=== PATIENT | female | born 1985 | race Asian ===

== ENCOUNTER → 2021-09-27 10:57 | Outpatient (CLI) | payer OTHER, SELFPAY ==
[2021-09-29 20:11] LABS: AFP Value 35.3 ng/mL (.); Gest Age on Col Date 15.9 weeks (.); Insulin Dep Diabetes No (.); OSBR Risk 1IN 9540 (.); Results Report (.); Test Results *Screen Negative* (.)
== END ==
PROVIDERS: Referring Provider Obstetrics & Gynecology; Visit Provider Obstetrics & Gynecology
DX: Z34.82 Encounter for supervision of other normal pregnancy, second trimester (principal); Z3A.15 15 weeks gestation of pregnancy
CPT/HCPCS: 36415; 82105

== ENCOUNTER → 2021-11-02 10:45 | Outpatient (CLI) | payer OTHER, SELFPAY ==
--- NOTE | 2021-11-02 10:47 | DI.US.S_ITS ---
PROCEDURE: US OB >= 14 WEEKS FETUS INDICATIONS: ANATOMY SCAN OUTSIDE/PRIOR DATING DATA: Last menstrual period (LMP): 06/01/2021 LMP-based estimated date of delivery (SERGO): 03/08/2022. First dating scan (date and location): 11/02/2021. Estimated date of delivery (SERGO) from first dating scan: 03/19/2022. The calculations are made using the ultrasound SERGO of 03/19/2022. TECHNIQUE: Real-time scanning was performed of the fetus, with image documentation and biometric measurements. COMPARISON: None. FINDINGS: General: A single living intrauterine gestation is present. Presentation: Vertex. Placenta: Placental position is anterior , without previa. Amniotic fluid index: 13.7 cm, normal range is 5-24 cm. Single deepest vertical pocket is 3.6 cm. heart rate: 139 beats per minute. Maternal cervical canal: 4.4 cm long. Normal lower limit is 2.5 cm. biometrics: Biparietal diameter: 20 weeks 3 days Head circumference: 20 weeks 3 days Abdominal circumference: 20 weeks Femur length: 20 weeks 5 days Clinically estimated gestational age: 22 weeks Composite gestational age from present scan: 20 weeks Estimated weight and percentile: 347 g; 2nd percentile Anatomic survey: Neuro: Suboptimally visualized. Nuchal skin fold: Normal at less than 6 mm between 14-21 weeks gestational age. Face: Suboptimally visualized. Spine: No evidence for spina bifida. Heart: Suboptimally visualized. Diaphragm: Diaphragm is intact. Stomach: Left-sided stomach is present. Kidneys: No hydronephrosis. Normal is less than 5 mm in 2nd trimester, less than 7 mm in 3rd trimester. Cord: 3-vessel cord has orthotopic insertion. Bladder: Normal in size. Extremities: Feet suboptimally visualized. IMPRESSION: 1. Single living IUP redemonstrated and interval growth is less than expected with estimated weight at the 2nd percentile. Recommend short-term follow-up ultrasound to exclude early developing intrauterine growth restriction. 2. Limited anatomic survey which can be reassessed on follow-up examination. We strive to produce accurate, complete, and clear reports of imaging services. To assist us in improving patient care, this report was composed using standard report templates and voice recognition software. Therefore, it may contain abnormal punctuation, insertions and/or omissions. Occasional wrong-word or sound-alike substitutions may occur. Though we review the report and make efforts to correct it, we do recommend that the report be read carefully in proper context to recognize any text inaccuracies. Dictated by: Krishna COLBY Interpreted: Camille Warren MD on 11/02/2021 at 16:40 Transcribed by: LANDRY on 11/02/2021 at 16:42 Approved by: Camille Warren M.D. on 11/02/2021 at 17:31
== END ==
PROVIDERS: Referring Provider Obstetrics & Gynecology; Visit Provider Obstetrics & Gynecology
DX: Z34.82 Encounter for supervision of other normal pregnancy, second trimester (principal)
CPT/HCPCS: 76811

== ENCOUNTER → 2021-12-25 06:39 | Outpatient (CLI) | payer OTHER, SELFPAY ==
--- NOTE | 2021-12-25 06:40 | DI.US.S_ITS ---
PROCEDURE: US OB LIMITED INDICATIONS: RE-EVALUATE ANATOMY; EFW OUTSIDE/PRIOR DATING DATA: Last menstrual period (LMP): 06/01/2021 LMP-based estimated date of delivery (SERGO): 03/08/2022 First dating scan (date and location): 11/07/2021 Estimated date of delivery (SERGO) from first dating scan: 03/19/2022 TECHNIQUE: Real-time scanning was performed of the fetus, with image documentation and biometric measurements. Endovaginal scanning: Not indicated [facility] >= 14 WEEKS [facility]US, 11/02/2021, 11:09. FINDINGS: General: A single living intrauterine gestation is present. Presentation: Vertex Placenta: Placental position is anterior, without previa. Amniotic fluid index: 16.9 cm, normal range is 5-24 cm. Single deepest vertical pocket is 6.2 cm. heart rate: 139 beats per minute. Maternal cervical canal: 3.8 cm long. Normal lower limit is 2.5 cm. biometrics: Biparietal diameter: 7.4 cm, 29 weeks, 3 days. Head circumference: 27.4 cm, 29 weeks, 6 days. Abdominal circumference: 23.9 cm, 28 weeks, 2 days. Femur length: 5.5 cm, 29 weeks, 0 day. Clinically estimated gestational age: 28 weeks, 0 day. Composite gestational age from present scan: 29 weeks, 1 day. Estimated weight and percentile: 1274 g, 66 %. Facial profile, four-chamber heart and outflow tracts and right lower extremity are visualized and are within normal limits. Neural structures are within normal limits. IMPRESSION: 1. Single live intrauterine gestation with fetus in vertex presentation. heart rate is 139 beats per minute. Normal amount of amniotic fluid. Normal growth. Estimated weight is at 66%. 2. facial profile, neural structures, cardiac structures and outflow tracts and right lower extremity are visualized on the current study and are within normal limits. We strive to produce accurate, complete, and clear reports of imaging services. To assist us in improving patient care, this report was composed using standard report templates and voice recognition software. Therefore, it may contain abnormal punctuation, insertions and/or omissions. Occasional wrong-word or sound-alike substitutions may occur. Though we review the report and make efforts to correct it, we do recommend that the report be read carefully in proper context to recognize any text inaccuracies. Dictated by: Ray Ratliff M.D. on 12/25/2021 at 10:56 Approved by: Ray Ratliff M.D. on 12/25/2021 at 10:59
[2021-12-25 09:23] LABS: Hematocrit 33.5 % (36-46); Hemoglobin 11.4 g/dL (12.0-16.0)
[2021-12-25 09:44] LABS: GTT (PREG) 1 Hour PP 50gm Dose 131 mg/dL (76-139)
== END ==
PROVIDERS: Referring Provider Obstetrics & Gynecology; Visit Provider Obstetrics & Gynecology
DX: Z36.2 Encounter for other antenatal screening follow-up (principal); Z3A.29 29 weeks gestation of pregnancy
CPT/HCPCS: 36415; 76815; 82950; 85014; 85018

== ENCOUNTER 2022-02-01 09:31 | Outpatient (CLI) | payer OTHER, SELFPAY ==
--- NOTE | 2022-02-01 10:10 | P.TNLD_ITS ---
Visit Information Visit Information Date of evaluation: 02/01/22 Primary OB Provider: Chalino Rubio Reason for Evaluation: Yes non-stress test Comments/Additional reasons for admission: Decreased FM, mother currently has URI symptoms Vital Signs Vital Signs: BP: 95/49 P: 94 T: 36.5C PFSH Surgical History (Updated 09/27/21 @ 10:53 by Chalino Rubio MD) Hx of SALUD Previous section Social History marital status: number of children: 1 household members: spouse and children (Son currently visiting family in [place]) lives independently: Yes housing: condominium ([facility]) pets and animals: No education level: college (some college) 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, on desk job during ) special sina needs: No travel history: over 6 months ago seatbelt use: always water heater temp set < 120 deg: Yes working smoke detector in home: Yes fire extinguisher in home: Yes carbon monox detector in home: Yes firearms in home: No do you feel safe at home: Yes Smoking Status: Never smoker second hand exposure: Yes ( smokes outside) alcohol intake: never substance use type: does not use during the past year weight has: remained stable well-balanced diet: daily or most days daily servings fruits/ve-4 caffeine: Yes Type(s) of exercise: walking frequency: 3-4 times per week Evaluation Evaluation Baseline heart rate: 145 Variability: Moderate (11-25) monitor accelerations: Present Monitor Decelerations: Absent Category of Tracing: Reactive Diagnosis, Plan/Disposition Final Diagnosis (1) Previous delivery, antepartum: Status: Acute (2) : Status: Acute (3) Decreased movement affecting management of in third trimester: Status: Acute Problem details: Normal FM noted and reactive NST Plan/Disposition Plan: Continue symptomatic treatment measures for URI. Follow-up as scheduled or PRN OB Disposition: home
== END 2022-02-01 10:54 | disposition home or self-care (01) ==
LOC: LABOR 10:02 → OB 02-07 09:05
PROVIDERS: Referring Provider Obstetrics & Gynecology; Visit Provider Obstetrics & Gynecology
DX: O36.8130 Decreased fetal movements, third trimester, not applicable or unspecified (principal); O09.523 Supervision of elderly multigravida, third trimester; O47.03 False labor before 37 completed weeks of gestation, third trimester; Z3A.33 33 weeks gestation of pregnancy
CPT/HCPCS: 59025; G0378; G0379

== ENCOUNTER → 2022-02-27 11:40 | Outpatient (CLI) | payer OTHER, SELFPAY ==
[2022-02-28 10:16] LABS: Strep Grp B PCR NEG for Grp B Strep
== END ==
PROVIDERS: Visit Provider Obstetrics & Gynecology
DX: Z34.83 Encounter for supervision of other normal pregnancy, third trimester (principal); Z3A.37 37 weeks gestation of pregnancy
CPT/HCPCS: 87653

== ENCOUNTER 2022-03-15 11:25 | Inpatient (IN) | payer OTHER, SELFPAY ==
--- NOTE | 2022-03-15 08:54 | P.HPOB_ITS ---
OB HPI Date/Time Date of admission: 03/15/22 Date Patient Seen: 03/15/22 Time Patient Seen: 12:40 History of Present Condition Chief complaint: Section : 2 Para: 1 Estimated Date of Delivery: 03/18/22 Estimated Gestational Age (weeks): 39+4 Narrative: Marcin Mg is a 36 year old , SERGO 03/18/2022 admitted now at 39+ 4 weeks gestational age for repeat section. Patient's course has been largely uneventful with solid dating and appropriate milestones throughout. Her 1st section was complicated by significant infection but otherwise her recovery was uncomplicated. GBS is negative. Laboratory studies showed gestational platelet decreased 111k patient has no symptoms of bleeding or easy bruising. Indications Operative indications ( section): previous uterine surgery History of Present care: good care Dating criteria: LMP confirmed by 1st trimester US Ultrasounds: normal 1st trimester US and normal mid trimester US Obstetrical complications: none Medical complications: other (Thrombocytopenia) Preadmission Labs Blood type: B (+) positive -: Antibody screen: negative, GBS status: negative, HBsAG: negative, HIV: negative and RPR/VDLR: negative -: Chlamydia screen: not detected and Gonorrhea screen: not detected -: Rubella: immune and Varicella: immune HCT: 35.8 HCAB: negative PAP: Normal Quad screen: Normal 1 hr GTT: 131 Prior (ies) History: CS x 1 Evaluation Evaluation Baseline heart rate: 150 Variability: Moderate (11-25) monitor accelerations: Present Monitor Decelerations: Absent Contraction Frequency (minutes): 2 Uterine Contraction Intensity: Mild Category of Tracing: Reactive Status: Category l [facility] Surgical History (Updated 09/27/21 @ 10:53 by Chalino Rubio MD) Hx of LASIK Previous section Social History marital status: number of children: 1 household members: spouse and children (Son currently visiting family in [place]) lives independently: Yes housing: condominium (base [facility]) pets and animals: No education level: college (some college) 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, on desk job during ) special sina needs: No travel history: over 6 months ago seatbelt use: always water heater temp set < 120 deg: Yes working smoke detector in home: Yes fire extinguisher in home: Yes carbon monox detector in home: Yes firearms in home: No do you feel safe at home: Yes Smoking Status: Never smoker second hand exposure: Yes ( smokes outside) alcohol intake: never substance use type: does not use during the past year weight has: remained stable well-balanced diet: daily or most days daily servings fruits/ve-4 caffeine: Yes Type(s) of exercise: walking frequency: 3-4 times per week Meds Home Medications and Allergies Home Medications Medication Instructions Recorded Confirmed Type prenat.vits,jody,gbw-[id number] 1 tab PO DAILY 09/20/21 03/13/22 History fluconazole 150 mg tablet 150 mg PO Q3D 2 doses #2 tabs 10/25/21 03/13/22 Rx (Diflucan) Allergies Allergy/AdvReac Type Severity Reaction Status Date / Time No Known Allergies Allergy Verified 03/13/22 11:39 OB Exam Vital signs Blood Pressure: 107/58 Pulse Rate: 75 Temperature: 98.2 F HENMT Head: normal to inspection, normocephalic and atraumatic Eyes General: appearance normal, both eyes and all related structures Resp Effort & Inspection: normal respiratory effort and able to speak in complete sentences Auscultation: clear to auscultation bilaterally Cardio Rate: regular rate Rhythm: regular rhythm Heart Sounds: S1 normal, S2 normal and no murmurs Extremities Lower extremity: Yes normal to inspection GI Inspection: normal to inspection Palpation: Yes soft and Yes no hepatosplenomegaly Uterus Location (Fundal Height): 38 Presentation: vertex Estimated Weight (lbs): 8 Objective Labs 03/15/22 12:25 Assessment and Plan Assessment and Plan Assessment and Plan narrative: ASSESSMENT 1. Intrauterine , 39+ weeks gestational age 2. Prior section x1 3. Thrombocytopenia PLAN 1. Admit for repeat section 2. See admission orders
[2022-03-15 12:39] LABS: Add Manual Diff / Slide Review NO; Basophils Absolute Auto 0 /uL (0-100); Basophils Percent Auto 0.4 % (0-2); Eosinophils Absolute Auto 100 /uL (0-450); Eosinophils Percent Auto 0.8 % (2-4); Hematocrit 35.8 % (36-46); Lymphocytes Absolute Auto 900 /uL (1100-4500); Lymphocytes Percent Auto 13.1 % (25-40); Mean Corpuscular HGB Conc 33.6 % (30-36); Mean Corpuscular Hemoglobin 28.8 PG (26-34); Mean Corpuscular Volume 85.8 fL (80-100); Monocytes Absolute Auto 500 /uL (0-900); Monocytes Percent Auto 7.7 % (3-14); Neutrophils Absolute Auto 5100 /uL (1500-7000); Platelet Count 111 X10^3/uL (150-400); Red Blood Cell Count 4.17 X10^6/uL (4.0-5.2); Red Cell Distribution Width 13.9 % (11.6-14.8); White Blood Cell Count 6.6 X10^3/uL (4.5-11.0)
[2022-03-15] MEDS: LACTATED RINGERS 1,000 ML 999 ML IV (12:40)
[2022-03-15 13:01] VITALS: BP 107/58
[2022-03-15 13:31] VITALS: BP 107/58; PULSE 75; TEMP 36.8
[2022-03-15] MEDS: LACTATED RINGERS 1,000 ML 42 ML IV ×2 (13:40→15:03)
[2022-03-15] MEDS: CITRIC ACID/SODIUM CITRATE 15 ML SOLUTION 30 ML PO (13:42)
[2022-03-15] MEDS: CEFAZOLIN 2 GM/100 ML PREMIX 100 ML IV (14:05)
--- NOTE | 2022-03-15 14:27 | SUR.OPER ---
Supine on Padded OR bed, head on pillow, safety belt at thigh, arms secured on padded arm boards at <90 degrees abduction. Bump under right buttock. Legs uncrossed with pillow under knees, gel pad to heels, tape over blanket to lower legs. Gel pad placed between right posterior thigh and urinary catheter tubing.
--- NOTE | 2022-03-15 14:47 | SUR.OPER ---
Viable baby girl delivered at 1439. Placenta delivered. Placenta and cord blood tubes X2 given to L&D RN.
[2022-03-15 15:43] VITALS: BP 98/62; PULSE 65; RESP 21; TEMP 36.4; O2SAT 100
[2022-03-15 15:49] VITALS: BP 98/52; PULSE 68; RESP 18; TEMP 36.4; O2SAT 100
--- NOTE | 2022-03-15 15:49 | P.OP_ITS ---
Operative Date/Time/Diagnoses Date of procedure: 03/15/22 Time of procedure: 14:15 Pre-op diagnosis: Intrauterine gestation, norris, 39+4 weeks EGA Previous section x 1 Post-op diagnosis: same Procedure & Clinicians Procedure: Repeat section, low transverse cervical Same procedure as scheduled: Yes Indications: Marcin Mg is a 36 year old , SERGO 03/18/2022 admitted now at 39+ 4 weeks gestational age for repeat section.? Patient's course has been largely uneventful with solid dating and appropriate milestones throughout.? Her 1st section was complicated by significant infection but otherwise her recovery was uncomplicated.? GBS is negative.? Laboratory studies showed gestational platelet decreased 111k patient has no symptoms of bleeding or easy bruising. Surgeon: Chalino Rubio Trimmer And Borer Machine Operator: Kim Rowe Reason for Trimmer And Borer Machine Operator: Trimmer And Borer Machine Operator required for the safe, effective, and timely completion of this surgery. Anesthesia Type: Spinal Operative Notes Findings: Viable female infant BW 3675 gms (8 lbs. 1.6 oz.), Apgars 8/9, delivered from the vertex presentation. Normal gravid anatomy. Adhesions between anterior fundus to anterior abdominal wall lysed. Closure Type: primary Specimen(s): cord blood Intraoperative meds administered: Ketorolac and Pitocin Applied: Catheter Estimated Blood Loss (mL): 800 Blood products transfused: none Procedure in detail: With her informed written consent, the patient was taken to the operating room and placed in the supine position for a repeat section procedure, for the indication(s) above. The abdomen was prepped and draped in the usual manner for section and a pre-surgical timeout was taken per [facility] OR protocol. Once effective anesthesia was confirmed, a 15 cm transverse Pfannenstiel incision was made in the skin excising the old scar and taken down through the subcutaneous tissues to the deep fascia. The deep fascia was incised transversely, the rectus abdominal eyes bluntly and sharply, and the peritoneal cavity entered without difficulty. The lower uterine segment was visualized and the position/presentation palpated. A transverse incision at or above the vesicouterine reflection was made with Metzenbaum scissors and transverse hysterotomy performed near the midline. Amniotomy revealed clear fluid. The incision was extended bilaterally with digital traction and the was delivered with vacuum extraction from the vertex presentation. The was vigorous and cord clamping delayed for 60 seconds. The placenta was delivered intact using gentle cord traction and fundal massage. The uterine cavity was then cleared of any clot/debris first with a sloppy wet lap tape followed by a dry lap tape. The uterus was then exteriorized following lysis of adhesions between the anterior fundus and the anterior abdominal wall. Ring forceps were then applied to the angles and the midline of the incised LETICIA. A primary closure of the uterus was then accomplished with #1 CCGS in a running interlocking stitch followed by a 2nd layer of #1 CCGS in a running interlocking imbricating stitch. [] Three additional figure of eight sutures was/were required to achieve complete hemostasis. Once pelvic hemostasis was assured, the bladder flap and anterior peritoneum were closed with a running 2-0 Vicryl suture and the fascia closed with #1 Vicryl in a running stitch initiated at both angles and tying separately near the midline. The subcutaneous tissues were reapproximated with 2-0 plain catgut suture using inverted interrupted stitches. The skin edges were then brought together with 4-0 Monocryl in a subcuticular closure and the incision was reinforced with 1 Steri-Strips. An appropriate compression dressing was applied and the patient transferred to PACU for recovery and subsequent transfer to the Center for recuperation. Complications: none Post-operative Condition: stable Disposition: PACU Aftercare: routine postop
[2022-03-15 15:50] VITALS: BP 92/54; PULSE 63; RESP 16; TEMP 36.4; O2SAT 99
[2022-03-15 16:05] VITALS: BP 94/59; PULSE 62; RESP 18; O2SAT 98
[2022-03-15] MEDS: TRANEXAMIC ACID 1,000 MG in SODIUM CHLORIDE 0.9% 100 ML 200 MG IV ×2 (16:10→18:23)
[2022-03-15] MEDS: ONDANSETRON 4 MG/2 ML INJ IV (17:14)
[2022-03-15] MEDS: ACETAMINOPHEN 325 MG TABLET 650 MG PO (17:59)
[2022-03-15] MEDS: METOCLOPRAMIDE 10 MG/2 ML INJ IV (18:25)
[2022-03-15] MEDS: KETOROLAC 30 MG/ML VIAL IV (21:27)
[2022-03-16] MEDS: KETOROLAC 30 MG/ML VIAL IV ×2 (04:21→10:00)
[2022-03-16 10:00] VITALS: TEMP 36.8
[2022-03-16] MEDS: DOCUSATE 100 MG CAPSULE PO (10:01)
[2022-03-16] MEDS: PRENATAL VIT,CALC/IRON/FOLIC 1 TABLET 1 TAB PO (10:01)
[2022-03-16] MEDS: OXYCODONE/ACETAMINOPHEN 5/325 TABLET 1 TAB PO (11:20)
--- NOTE | 2022-03-16 11:49 | P.PNOB_ITS ---
Subjective - OB Subjective Patient comments: no complaints, incisional pain, tolerating diet and flatus present baby status: doing well [place] feeding status: exclusively breast feeding Narrative: Doing well overnight with reasonable pain control. No nausea and vomiting. Patient is afebrile and normotensive. Date Patient Seen: 03/16/22 Time Patient Seen: 11:50 Exam Vital Signs (past 8 hours): - 03/16/22 10:00 Temperature 98.2 F Oxygen Delivery Method Room Air Const General: cooperative and comfortable Nutritional Appearance: average body habitus Orientation: alert and oriented x3 HENMT Head: normal to inspection, atraumatic and abrasion Ears: hearing grossly normal bilaterally Face and sinus: face symmetric Eyes General: appearance normal, both eyes and all related structures Conjunctivae: conjunctivae normal Sclera: sclerae normal EOM: EOM intact bilaterally Neck Neck: normal visual inspection Resp Effort & Inspection: normal respiratory effort and able to speak in complete sentences Auscultation: clear to auscultation bilaterally Cardio Rate: regular rate Rhythm: regular rhythm Heart Sounds: S1 normal, S2 normal and no murmurs GI Inspection: normal to inspection and incision (Surgical dressing clean and dry) Palpation: soft, no hepatosplenomegaly, mass (Firm, mildly tender fundus, U -4.) and tender (Mild, diffuse postsurgical tenderness) External Female Exam: other (No significant bleeding noted) Extrem General: no calf tenderness Psych Appearance: grossly normal Mental Status: mental status grossly normal Speech and Movement: speech and movement normal Mood: congruent mood Affect: normal affect Attitude: cooperative Thought Process: normal Thought Content: normal Judgment: judgment good Objective Labs 03/15/22 12:25 Labs: Laboratory Results - last 24 hr 03/15/22 03/15/22 12:25 12:25 WBC 6.6 RBC 4.17 Hgb 12.0 Hct 35.8 L MCV 85.8 MCH 28.8 MCHC 33.6 RDW 13.9 Plt Count 111 L Neut % (Auto) 78.0 H Lymph % (Auto) 13.1 L [place] % (Auto) 7.7 Eos % (Auto) 0.8 L Baso % (Auto) 0.4 Neut # (Auto) 5100 Lymph # (Auto) 900 L [place] # (Auto) 500 Eos # (Auto) 100 Baso # (Auto) 0 Blood Type B Positive Antibody Screen Negative Assessment & Plan Plan day: 1 plan OB: routine postop care Comments: Possible discharge tomorrow if patient comfortable with discharge given that she had atraumatic for complicated by severe postoperative infection. Patient is clearly traumatized by the experience and anxious about recurrence of the infection Time Spent With Patient Time: Total time spent is greater than 50% in coordination of care (as documented) at patient's floor/unit and/or counseling patient: Time with patient: less than 15 minutes
[2022-03-16] MEDS: OXYCODONE IR 5 MG TABLET PO (13:10)
[2022-03-16] MEDS: ACETAMINOPHEN 325 MG TABLET 650 MG PO ×2 (16:50→23:22)
[2022-03-16] MEDS: IBUPROFEN 600 MG TABLET PO ×2 (16:51→23:21)
[2022-03-16] MEDS: OXYCODONE IR 5 MG TABLET 10 MG PO ×2 (16:52→20:51)
[2022-03-16] MEDS: MORPHINE 4 MG/ML INJ IV (20:19)
[2022-03-17] MEDS: OXYCODONE IR 5 MG TABLET 10 MG PO ×3 (01:09→09:22)
[2022-03-17] MEDS: ACETAMINOPHEN 325 MG TABLET 650 MG PO ×3 (05:03→21:37)
[2022-03-17] MEDS: IBUPROFEN 600 MG TABLET PO ×3 (05:04→18:55)
[2022-03-17 07:39] VITALS: BP 95/63; PULSE 69; RESP 16; TEMP 36.9
[2022-03-17 09:22] VITALS: TEMP 36.5
[2022-03-17] MEDS: PRENATAL VIT,CALC/IRON/FOLIC 1 TABLET 1 TAB PO (09:22)
[2022-03-17] MEDS: DOCUSATE 100 MG CAPSULE PO (09:22)
--- NOTE | 2022-03-17 10:11 | PM.OBPN.1 ---
Subjective - OB Subjective Patient comments: no complaints and incisional pain; no pain well controlled [place] baby status: doing well [place] feeding status: exclusively breast feeding Narrative: Patient has experienced prompt return of bowel and bladder function but remains oligo-ambulatory due to poorly controlled/tolerated pain despite increased dosage of oxycodone 10 mg every 6 hours and ibuprofen. She is tolerating a regular diet but is only able to ambulate to bathroom or the bedside chair with assistance. Date Patient Seen: 03/17/22 Time Patient Seen: 10:13 Exam Vital Signs (past 8 hours): - 03/17/22 09:22 Temperature 97.7 F Oxygen Delivery Method Room Air Const General: cooperative and comfortable Nutritional Appearance: average body habitus Orientation: alert and oriented x3 HENMT Head: normal to inspection, atraumatic and abrasion Ears: hearing grossly normal bilaterally Face and sinus: face symmetric Eyes General: appearance normal, both eyes and all related structures Conjunctivae: conjunctivae normal Sclera: sclerae normal EOM: EOM intact bilaterally Neck Neck: normal visual inspection Resp Effort & Inspection: normal respiratory effort and able to speak in complete sentences Auscultation: clear to auscultation bilaterally Cardio Rate: regular rate Rhythm: regular rhythm Heart Sounds: S1 normal, S2 normal and no murmurs GI Inspection: normal to inspection and incision (Compresson dressing removed, incision intact, AquaCel dressing applied) Palpation: soft, no hepatosplenomegaly, mass (Firm, mildly tender fundus, U -6) and tender (Mild, diffuse postsurgical tenderness) Auscultation: normal bowel sounds External Female Exam: other (No significant bleeding noted) Extrem General: no calf tenderness Psych Appearance: grossly normal Mental Status: mental status grossly normal Speech and Movement: speech and movement normal Mood: congruent mood Affect: normal affect Attitude: cooperative Thought Process: normal Thought Content: normal Judgment: judgment good Objective Labs 03/15/22 12:25 Assessment & Plan Plan day: 2 plan OB: routine postop care Comments: Patient does not meet criteria for discharge in her pain is not adequately hold with oral pain medication is so as her ability to perform normal daily activities without significant assistance. Hopefully the patient will be more ambulatory tomorrow for possible discharge but more likely discharge will be possible 03/19/2022 due to pain control. Time Spent With Patient Time: Total time spent is greater than 50% in coordination of care (as documented) at patient's floor/unit and/or counseling patient: Time with patient: 15-24 minutes
[2022-03-17] MEDS: OXYCODONE IR 5 MG TABLET PO ×2 (15:19→21:37)
[2022-03-18] MEDS: IBUPROFEN 600 MG TABLET PO ×3 (00:48→13:54)
[2022-03-18] MEDS: OXYCODONE IR 5 MG TABLET PO ×4 (00:48→16:44)
[2022-03-18] MEDS: ACETAMINOPHEN 325 MG TABLET 650 MG PO ×3 (04:44→16:45)
[2022-03-18] MEDS: DOCUSATE 100 MG CAPSULE PO (08:53)
[2022-03-18] MEDS: PRENATAL VIT,CALC/IRON/FOLIC 1 TABLET 1 TAB PO (08:53)
--- NOTE | 2022-03-18 10:37 | PM.OBPN.1 ---
Subjective - OB Subjective Patient comments: no complaints, pain well controlled, tolerating diet and flatus present baby status: doing well and bottle feeding well Narrative: Patient denies complaints this morning and is feeling much better. Getting out of bed is easier and she can do it independently. She is tolerating a diet. Pain well controlled and vaginal bleeding light. She is exclusively bottle feeding her . She would like to stay in the hospital until tomorrow as discussed with Dr. Rubio. The abdominal binder has been very helpful. Date Patient Seen: 03/18/22 Time Patient Seen: 09:10 Exam Vital Signs (past 8 hours): Oxygen Delivery Method Room Air Narrative Exam Narrative: General: Awake and alert, no acute distress HEENT: NCAT, EOMI, moist oral mucosa CV: Regular rate and rhythm, no murmurs, rubs or gallops Lungs: CTAB, no wheezes, rales, or rhonchi Abdomen: Aquacel dressing intact without drainage. Soft, nontender; bowel tones active; uterus firm 1 cm below umbilicus. Extremities: Warm, no edema bilaterally Objective Labs 03/15/22 12:25 Assessment & Plan Assessment and Plan (1) 39 weeks gestation of : Status: Acute (2) Status post repeat low transverse section: Status: Acute Plan day: 3 plan OB: routine postop care Comments: Patient is much improved today with independent ambulation and personal care. Pain controlled with ibuprofen Tylenol and oxycodone. She is progressing well in her recovery. She would like to stay an additional day. Will check with care management for insurance coverage as she has been here 3 nights after an uncomplicated repeat section. Time Spent With Patient Time: Total time spent is greater than 50% in coordination of care (as documented) at patient's floor/unit and/or counseling patient: Time with patient: less than 15 minutes
--- NOTE | 2022-03-18 15:52 | CM.SWNOTE ---
Per OB MD, pt is medically stable to d/c after and healthy delivery of baby girl but pt and spouse requesting to stay until tomorrow 03/19/22 after already being admitted since 03/15/22. Per OB, baby already discharged and MOB healing well from second C section but has some nervousness about discharging too soon as her last delivery via ended up getting an infection after discharge to home. SW met bedside with MOB and FOB and healthy baby girl and discussed discharge orders and that there is no medical justification or medical criteria for remaining hospital level of care. Discussed [facility] and unknown if pt would be liable for bill if she did not discharge home tonight. Pt and spouse acknowledged understanding. SW inquired about their hesitancy to d/c and inquired about PPD and MOB denies any PPD after first baby and denies any symptoms at this time and hesitancy is based on their fear of another infection. SW discussed if they stayed another night it would not guarantee an infection and that currently OB confirms no sign of infection or problem. SW inquired if an RN call to home or RN would be beneficial to reduce their fears and they confirmed they would be agreeable with RN follow up after d/c. MOB and FOB agree that they will plan to d/c home tonight and they have support at home and a 9yo child who is looking forward to meeting baby sister. SW updated RN and she will provide discharge pwk to MOB and FOB when ready for d/c this evening. ABILIO left msgs for Ben and Sada who both cover [place] to inquire about earliest availability and will make referral by tomorrow morning and see if [facility] services might be faster. DANYEL Torres
--- NOTE | 2022-03-19 08:07 | CM.SWNOTE ---
Follow up SW was able to contact [facility] Visiting Nurse this morning (Saturday) after MOB discharge home last night and made new referral for f/u phone call and visit if needed to Joellen Benavides [phone] and provided MOB information and contact and delivery and information and Joellen will kindly contact MOB and FOB today for ongoing support as they were feeling nervous about discharge to home and potential for C Section healing complications. DANYEL Torres
--- NOTE | 2022-05-04 11:25 | PM.OBDS.1 ---
Discharge Providers Provider Date of admission: 03/15/22 11:25 Discharge Date: 03/18/22 Primary care physician: Nora REDDY Provider Consults: 03/15/22 15:39 Consult to Impregnating Machine Operator Routine Comment: Discharge provider: Marysol Alberto MD Summary Hospital Course Date Patient Seen: 03/18/22 Time Patient Seen: 12:30 Diagnoses: 39+4 wks gestation Previous C section Repeat C section Hospital Course: Patient is a 36 year old who presented on 03/15/22 for a scheduled repeat C section. She underwent this procedure without complication. Her postoperative course was unremarkable and she was discharge to home on 03/18/22. She was ambulating independently, tolerating a diet, pain well controlled and voiding spontaneously. Peripartum Data Delivery Method: Section Procedures: Repeat low transverse C section Spinal anesthesia complications: none 1: Disposition of : home Discharge Diagnosis (1) 39 weeks gestation of : Status: Acute (2) Status post repeat low transverse section: Status: Acute Status at Discharge Cognitive/behavioral status at discharge: oriented Functional status at discharge: independent ambulation Overall status at discharge: patient is progressing back to baseline Time Spent with Patient Time attestation: Total time spent providing and/or coordinating discharge services: Time spent: Less than 30 minutes Objective Labs 03/15/22 12:25 Exam Vital Signs (past 8 hours): Oxygen Delivery Method Room Air Narrative Exam Narrative: Generally: Pt sitting up in chair, eating lunch, no acute distress Lungs: CTA bilat CV: RRR Fundus: Firm at U/-1 Incision: C/D/I Ext: Trace edema, negative Elizabeth's Discharge Plan Discharge Plan Patient Disposition: Home Provider Discharge Comment: Call with fever, chills, redness or drainage around the incision or bleeding vaginally more than a pad in an hour Ibuprofen 600mg every 6 hours as needed Tylenol 650mg every 6 hours as needed Stool softners as needed Discharge orders & Medications Prescriptions: New oxycodone 5 mg tablet 5 mg PO Q4H PRN (Reason: pain) Qty: 20 0RF Continued prenat.vits,jody,[id number]-wkcru Tablet 1 tab PO DAILY Follow up/Referrals: Chalino Rubio MD [Physician] - (My office will call patient to schedule a follow-up on , March 22, 2022 for Aquacel dressing removal) Diet/Activity/Treatments Diet: Regular Activity: No heavy lifting, nothing more than the baby or a gal of milk Skin/Wound/Dressing Care Report to your healthcare provider any signs of infection, such as:: chills, fever, increased pain, unusual drainage and unusual redness Dressing: Do not remove Visit Report/Discharge Packet Instructions: DI for , DI for Prescription Opioid Use Stand Alone Forms: Patient Portal/API, Stroke Signs & Symptoms Discharge Data Primary Care Provider: ProviderNora
== END 2022-03-18 17:53 | disposition home or self-care (01) | DRG 787 ==
PROVIDERS: Admitting Provider Obstetrics & Gynecology; Referring Provider Obstetrics & Gynecology; Visit Provider Obstetrics & Gynecology
PROC: 10D00Z1 Extraction of Products of Conception, Low, Open Approach (ICD-10-PCS; CPT 59514; principal; 2022-03-15 13:30)
DX: O34.211 Maternal care for low transverse scar from previous cesarean delivery (principal); O99.12 Other diseases of the blood and blood-forming organs and certain disorders involving the immune mechanism complicating childbirth; D69.6 Thrombocytopenia, unspecified; Z3A.39 39 weeks gestation of pregnancy; Z37.0 Single live birth; O99.892 Other specified diseases and conditions complicating childbirth; N73.6 Female pelvic peritoneal adhesions (postinfective)
CPT/HCPCS: 36415; 59050; 59510; 59514; 85025; 86850; 86900; 86901; J0690; J1885; J2270; J2274; J2405; J2590; J2765; J3010

== ENCOUNTER → 2022-06-15 12:11 | Outpatient (CLI) | payer OTHER, SELFPAY ==
--- NOTE | 2022-06-15 12:12 | DI.US.S_ITS ---
PROCEDURE: US PELVIC COMPLETE INDICATIONS: IRREGULAR BLEEDING AFTER IUD PLACEMENT TECHNIQUE: Real-time scanning was performed of the pelvic organs, with image documentation. Additional endovaginal scanning was necessary due to incomplete visualization of the adnexal and endometrial structures by transabdominal scanning. COMPARISON: None. FINDINGS: Uterus: Uterus is retroverted and normal in size at 11.5 x 5.5 x 6.9 cm. The myometrium is homogeneous. The endometrial stripe is irregular and measures 11 mm. No abnormal vascularity can be seen. A complex nabothian cyst is seen without abnormal vascularity that measures up to 1.2 cm. Ovaries: The right ovary is not seen, obscured by overlying bowel. The left ovary measures 3.5 x 2.9 x 3.5 cm, with a volume of 19.4 cc. A dominant follicle within the left ovary measures 1.4 cm, which is considered to be within physiologic limits. Other: A small amount of free fluid can be seen within the cul-de-sac. IMPRESSION: There is a complex nabothian cyst measuring up to 1.2 cm. The endometrial stripe is irregular, without abnormal vascularity. The right ovary is not seen, secondary to overlying bowel gas. The left ovary is unremarkable. A small amount of free pelvic fluid is noted, which is more than would be expected for physiologic fluid. We strive to produce accurate, complete, and clear reports of imaging services. To assist us in improving patient care, this report was composed using standard report templates and voice recognition software. Therefore, it may contain abnormal punctuation, insertions and/or omissions. Occasional wrong-word or sound-alike substitutions may occur. Though we review the report and make efforts to correct it, we do recommend that the report be read carefully in proper context to recognize any text inaccuracies. Dictated by: Arthur Barreto M.D. on 06/15/2022 at 15:24 Approved by: Arthur Barreto M.D. on 06/15/2022 at 15:27
== END ==
PROVIDERS: Referring Provider Obstetrics & Gynecology; Visit Provider Obstetrics & Gynecology
DX: N93.9 Abnormal uterine and vaginal bleeding, unspecified (principal); N88.8 Other specified noninflammatory disorders of cervix uteri; Z97.5 Presence of (intrauterine) contraceptive device
CPT/HCPCS: 76830; 76857; 93976

== ENCOUNTER → 2024-07-17 19:08 | Outpatient (CLI) | payer OTHER, SELFPAY ==
--- NOTE | 2024-07-17 19:10 | DI.MRI.S_ITS ---
PROCEDURE: MR LUMBAR SPINE WO CON INDICATIONS: BACK PAIN TECHNIQUE: Noncontrast sagittal T1 spin echo and T2 fast echo, sagittal STIR, and T2 fast spin echo through the lumbar spine. In cases with scoliosis, additional coronal T2 fast spin echo may be performed. COMPARISON: None. FINDINGS: Image quality: Excellent. Alignment and Curvature: There is normal bony alignment. Bone Marrow: Marrow is of normal overall signal. No acute vertebral body compression fractures. Spinal Cord: Conus medullaris terminates at the T12 level. Visualized cord demonstrates normal signal and size. Paraspinous Soft Tissues: No paravertebral masses. T12-L1: Normal appearance. L1-L2: Normal appearance. L2-L3: Normal appearance. L3-L4: Normal appearance. L4-L5: Normal appearance. L5-S1: Mild disc bulge with superimposed shallow posterior central protrusion. No spinal stenosis seen. There is a 1.75 cm lesion in the interpolar region of the left kidney anteriorly, with mildly increased T2 signal. There is also an exophytic low T2 signal lesion arising from the left lower pole measuring 2.4 cm as well as other lesions with low and high T2 signal extending more superiorly towards the interpolar region posteriorly measuring up to 2.35 cm. IMPRESSION: 1. Essentially unremarkable appearance of the lumbar spine with no spinal stenosis, disc extrusion or acute focal osseous lesion seen. 2. Multiple lesions in the left kidney as described. Some of these are probably due to hemorrhagic cysts, however there is also probable solid lesion in the interpolar region. Further evaluation can be performed initially with ultrasound. Dictated by: Jason Vargas M.D. on 07/17/2024 at 21:11 Approved by: Jason Vargas M.D. on 07/17/2024 at 21:19
== END ==
LOC: MRI 19:10
PROVIDERS: Referring Provider Family Medicine; Visit Provider Family Medicine
DX: M54.50 Low back pain, unspecified (principal); N28.9 Disorder of kidney and ureter, unspecified
CPT/HCPCS: 72148

== ENCOUNTER → 2024-08-22 09:00 | Outpatient (CLI) | payer OTHER, SELFPAY ==
--- NOTE | 2024-08-22 09:01 | DI.MRI.S_ITS ---
PROCEDURE: MR ABDOMEN RENAL PROTOCOL INDICATIONS: ANGIOMYOLIPOMIA TECHNIQUE: Coronal HASTE through abdomen and pelvis; axial 2D FLASH in- and [id number] (with and without fat saturation), and breath-hold T2 FSE from the hepatic dome to the bottom of the kidneys. Coronal HASTE MR urogram of kidneys and bladder. Dynamic coronal VIBE during IV gadolinium administration; postgadolinium axial VIBE or 2D FLASH with fat saturation from the hepatic dome through the kidneys. COMPARISON: [facility], MR, MR LUMBAR SPINE WO CON, 07/17/2024, 19:20. FINDINGS: Image quality: Diagnostic. Kidneys and Ureters: Both kidneys are normal size and morphology. No hydronephrosis. -In the left anterior interpolar corticomedullary parenchyma, there is a 1.8 cm round lesion with slightly heterogeneous T1 and T2 signal, isoechoic to renal parenchyma, with diffuse signal loss on out of phase imaging, and heterogeneous enhancement. -There is a 2nd lesion in the left lower pole with T1 and T2 fat signal measuring 1.7 cm, with T1 and T2 hypointense mural nodularity. Out of phase and fat saturated imaging demonstrates macroscopic fat content. Mural nodularity demonstrates enhancement. There is a small solid component along the inferior margin of this lesion which may be separate -Arising exophytically, from the left lower pole, there is a solid mass measuring 2.7 x 1.9 cm with low T2 signal compared to renal parenchyma, no significant fat content, and homogeneous enhancement. -1.0 cm cystic and solid, partially exophytic lesion along the posterior interpolar lateral left kidney demonstrates diffuse enhancement of the solid component. -1.0 cm T2 hypointense, partially exophytic lesion arises laterally from the right lower pole and demonstrates enhancement. OTHER: Lung bases: Unremarkable. Liver: No solid mass. Gallbladder: Phrygian cap morphology. No significant stone. No wall thickening. Biliary ducts: No biliary dilation. Pancreas: No ductal dilation. Spleen: Size is within normal limits. Adrenal Glands: No adrenal nodules. Stomach and Bowel: Stomach and visible bowel loops are within normal limits. Normal appendix partially seen. Peritoneum: No abnormal intraperitoneal fluid. No free air. Incidental note made of fibroid uterus. Ventral Wall: No hernia. Abdominal Nodes: No bulky adenopathy. Vessels: The abdominal aorta, IVC, and portal vein are of normal caliber. Renal veins are patent. Bones: No aggressive osseous abnormality. IMPRESSION: At least five, solid or part solid enhancing masses in the left kidney, the largest in the lower pole exophytic position measures 2.7 cm. There is no encroachment on the renal sinus and no evidence of renal vein thrombus. Solid, partially exophytic right lower pole 1.0 cm mass. No evidence of adenopathy in the abdomen. Urology consult recommended. Dictated by: Rand Alatorre M.D. on 08/24/2024 at 10:09 Approved by: Rand Alatorre M.D. on 08/24/2024 at 10:47
== END ==
PROVIDERS: Visit Provider Family Medicine
DX: D17.71 Benign lipomatous neoplasm of kidney (principal); D25.9 Leiomyoma of uterus, unspecified
CPT/HCPCS: 74183; A9579

== ENCOUNTER 2025-02-02 10:01 | Emergency (ER) | payer OTHER, SELFPAY ==
--- OUTSIDE RECORDS SUMMARY | 2025-02-02 10:06 | XMS_ITS | Clinical Summary ---
Author Organization [facility] Address [address] [place] [address] Care Team Providers Care Shop Technician Name Role Phone Pcp Primary Care Provider Samson Madsen MD Unavailable [phone] Allergies No known active allergies Medications DULoxetine [address] capsule Take 1 capsule (60 mg) by mouth. 06/29/2024 Active celecoxib 100 MG capsule 06/12/2024 Active methocarbamol 750 MG tablet 06/12/2024 Activ e cyclobenzaprine 10 MG tablet Take 1 tablet (10 mg) by mouth every 8 hours as needed. 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 Concern for genetic etiology. Encounters Date Type Department Care Team Description 01/26/2025 Telephone [facility] [address], [id number] [place], [place] [id number] Samson Livingston MD Care Coordination 12/03/2024 Patient E-mail [facility] Main Operating Room [address] [place] [address] Questionnaire Submission from Last 3 Months Family History Medical History Relation Comments No Known Problems Father Kidney Disease Maternal Aunt Lung Cancer Maternal Grandfather Former smok er Liver Cancer Maternal Grandmother No Known Problems Mother Heart Disease Paternal Uncle 1 Relation Status Comments Daughter Alive Father Alive Maternal Aunt Alive Maternal Grandfather (Age 83) Maternal Grandmother (Age 72) Maternal Uncle 1 Alive Maternal Uncle 2 Alive Mother Alive Paternal Aunt 1 Alive Paternal Aunt 2 Alive Paternal Grandfather (Age 83) Paternal Grandmother Alive Paternal Uncle 1 Alive Paternal Uncle 2 Alive Son Alive Social History Tobacco Use Types Packs/Day Years Used Date Smoking Tobacco: Never Assessed Comments Unknown Sex and Gender Information Value Date Recorded Sex Assigned at Not on file Legal Sex Female 9:31 AM PST Gender Identity Not on file Sexual Orientation Not on file Plan of Treatment Upcoming Encounters Date Type Department Care Team (Late st Contact Info) Description 03/09/2025 Hospital Encounter [facility] Main Operating Room [address] [place] [address] Samson Livingston MD [id number] [place] [address] 03/23/2025 2:00 PM PST Office Visit [facility] [address], [id number] [place] [id number] Billie Jennings ARNP [id number] [place] [address] Scheduled Procedures Name Priority Associated Diagnoses Date/Ti me NEPHRECTOMY, PARTIAL, PERITO REMI, ROBOT-ASSISTED, DV5 Left renal mass Health Maintenance Due Date Last Done Comments Hepatitis C Screening 1984 Depression Screening (PHQ-2) 1996 HIV Screening 1999 Hepatitis B Screening 2002 Cervical Cancer Screening 2009 HPV Self Collect 2009 HPV 2009 Pap 2009 Hepatitis B Vaccine (2 of 3 - 19+ 3-dose series) 09/06/2020 08/09/2020 HPV Vaccine (2 - 3-dose SCDM series) 10/23/2022 09/25/2022 COVID-19 Vaccine ( - season) 2024 02/16/2021, 06/13/2020, 05/23/2020 Influenza Vaccine (#1) 2024 , 11/28/2022, 11/30/2021, Additional history exists Breast Cancer Screening 04/29/2026 04/29/2024 DTaP, Tdap and Td Vaccines (3 - Td or Tdap) 12/28/2031 12/27/2021, 08/09/2020 Hepatitis A Vaccine Completed 05/22/2021, 08/09/2020, 08/10/2019 Meningococcal B Vaccine Aged Out No l onger eligible based on patient's age to complete this topic Pneumococcal Vaccine: Pediatrics (0-5 years) and At-Risk Patients (6-49 years) Aged Out No longer eligible based on patient's age to complete this topic Insurance [employer] Member Subscriber Plan / Payer (Ef fective 2023-Present) Name:Kiya Mg Relation to Subscriber:Self Name:Kiya Mg Payer ID:[id number] (NAIC) Group ID:[id number] Type:Medicaid Address: [place] [id number] Care Teams Shop Technician Relationship Specialty Start Date End Date Pcp Identifies patients without a PCP or unassigned PCP - General 03/08/23 Samson Livingston MD Identifies patients without a PCP or unassigned Surgical Oncologist Urology 03/11/23
[2025-02-02 10:16] VITALS: BP 109/51; PULSE 68; RESP 18; TEMP 37.2; O2SAT 98; BMI 24.2
[2025-02-02 10:36] LABS: Strep Grp A by PCR Rapid Negative (Negative)
[2025-02-02 11:22] LABS: Influenza A - CEPHEID Flu A NEGATIVE (NEGATIVE); Influenza B - CEPHEID Flu B NEGATIVE (NEGATIVE)
[2025-02-02 11:25] LABS: COVID-19 CEPHEID 4-PLEX PCR Negative (Negative)
[2025-02-02 14:20] VITALS: BP 104/55; PULSE 80; RESP 16; TEMP 37.2; O2SAT 100
--- NOTE | 2025-02-02 19:13 | ED_ITS ---
<Statement entered by Samson Choudhary, DO - 02/02/25 22:57> Co-sign statement: I was available for consultation during this patient's emergency department visit. This chart is being signed by myself for administrative purposes only. I do not have direct contact with this patient during this visit. They were seen independently by the APC. HPI - URI/Sore Throat General Chief Complaint: Upper Respiratory Symptoms Stated Complaint: sore throat Time Seen by Provider: 02/02/25 11:16 Source: patient Mode of arrival: Ambulatory History of Present Illness HPI Narrative: 39-year-old female with no reported past medical history presents to the ED today with 3-4 days of upper respiratory symptoms including sore throat and cough. Patient states that her son was sick, that she got sick after being exposed to him. No fever, chills, chest pain, shortness of breath. Related Data Home Medications ?Medication ?Instructions ?Recorded ?Confirmed prenat.vits,jody,[id number] 1 tab PO DAILY 09/20/21 06/05/22 Previous Rx's ?Medication ?Instructions ?Recorded oxycodone 5 mg tablet 5 mg PO Q4H PRN pain #20 tab s 03/18/22 fluconazole 150 mg tablet 150 mg PO Q3D 2 doses #2 tab s 05/11/22 (Diflucan) Allergies Allergy/AdvReac Type Severity Reaction Status Date / Time No Known Allergies Allergy Verified 02/02/25 10:16 Review of Systems Constitutional Constitutional: Denies chills, Denies fatigue, Denies fever(s), Denies frequent falls, Denies lethargy and Denies weakness Eyes Eyes: Denies change in vision, Denies eye discharge, Denies irritation and Denies loss of vision ENT Ears, Nose, Mouth, and Throat: Denies change in voice, Denies dizziness, Denies neck pain, Reports sore throat and Denies throat swelling Cardiovascular Cardiovascular: Denies chest pain, Denies irregular heart rhythm, Denies lightheadedness, Denies palpitations, Denies dyspnea, Denies dyspnea on exertion and Denies orthopnea Respiratory Respiratory: Reports cough, Denies dyspnea, Denies dyspnea on exertion and Denies wheezing Gastrointestinal Gastrointestinal: Denies abdominal pain, Denies change in bowel habits, Denies diarrhea, Denies nausea and Denies vomiting Musculoskeletal Musculoskeletal: Denies neck pain and Denies numbness Integumentary/Breasts Skin/Breast: Denies pruritus, Denies erythema, Denies rash and Denies wounds Neurologic Neurologic: Denies behavioral changes, Denies confusion, Denies dizziness, Denies frequent falls, Denies loss of vision, Denies numbness and Denies weakness Psychiatric Psychiatric: Denies anxiety, Denies behavioral changes, Denies confusion, Denies depression, Denies homicidal ideation and Denies suicidal ideation Endocrine Endocrine: Denies fatigue, Denies flushing and Denies palpitations Hematologic/Lymphatic Hematologic/Lymphatic: Denies easy bruising Allergic/Immunologic Allergic/Immunologic: Denies urticaria, Denies throat swelling and Denies wheezing Patient History Surgical History Status post repeat low transverse section Hx of LASIK Previous section Social History marital status: number of children: 1 household members: spouse and children lives independently: Yes housing: [facility] pets and animals: No education level: college occupational status: employed current occupational exposures/hazards: Yes (Fuels airplanes, on desk job during ) special sina needs: No travel history: over 6 months ago seatbelt use: always water heater temp set < 120 deg: Yes working smoke detector in home: Yes fire extinguisher in home: Yes carbon monox detector in home: Yes firearms in home: No do you feel safe at home: Yes Smoking Status: Never smoker second hand exposure: Yes ( smokes outside) alcohol intake: never substance use type: does not use during the past year weight has: remained stable well-balanced diet: daily or most days daily servings fruits/ve-4 caffeine: Yes Type(s) of exercise: walking frequency: 3-4 times per week Smoking Status: Never smoker Exam Narrative Exam Narrative: Const General:?cooperative, healthy appearing and comfortable [facility] Head:?normal to inspection Ears:?hearing grossly normal bilaterally Nose:?external nose normal Face and sinus:?normal facial exam and sinuses nontender Mouth:?oral mucosae normal Throat:?posterior oropharynx normal Eyes General:?appearance normal, both eyes and all related structures Neck Neck:?normal visual inspection and no lymphadenopathy noted Resp Effort & Inspection:?normal respiratory effort Auscultation:?clear to auscultation bilaterally Cardio Rate:?regular rate Rhythm:?regular rhythm Neuro General:?patient alert, patient awake and patient oriented x3 Initial Vital Signs Initial Vital Signs: Vital Signs Temperature 98.9 F 02/02/25 10:16 Pulse Rate 68 02/02/25 10:16 Respiratory Rate 18 02/02/25 10:16 Blood Pressure 109/51 L 02/02/25 10:16 Pulse Oximetry 98 02/02/25 10:16 Oxygen Delivery Method Room Air 02/02/25 10:16 Course Orders Ordered: ED Orders 02/02/25 10:15 Covid-19 + FLU A/B + RSV - PCR Stat Throat Culture Stat Vital Signs Vital signs: Vital Signs - 8 hr 02/02/25 14:20 Temperature 98.9 F Pulse Rate 80 Respiratory Rate 16 Blood Pressure 104/55 L Pulse Oximetry 100 Oxygen Delivery Method Room Air MDM - URI/Sore Throat Lab Data Labs: Lab Results 02/02/25 02/02/25 Range/Units 10:13 10:15 SARS-CoV-2 (PCR) Negative (Negative) Influenza A (RT-PCR) Flu a negative (NEGATIVE) Influenza B (RT-PCR) Flu b negative (NEGATIVE) RSV (PCR) Negative (Negative) Group A Strep (PCR) Negative (Negative) MDM Narrative Medical decision making narrative: 39-year-old female with no reported past medical history presents to the ED today with 3-4 days of upper respiratory symptoms including sore throat and cough. Patient is negative for strep, influenza a, COVID 19, RSV. Benign physical exam. Patient saw her PCP yesterday who gave her Sudafed and Mucinex. Recommend patient continue those medications along with Tylenol, ibuprofen. Recommend follow-up with PCP as soon as possible. ED return precautions were discussed with patient. Patient verbalized understanding. Medical records reviewed: Yes Discharge Plan Departure Patient Disposition: Home Clinical Impression: Upper respiratory infection, viral Instructions: DI for Viral Upper Respiratory Infection -- Adult Activity Restrictions/Additional Instructions: You were evaluated in the emergency department today for a sore throat and some upper respiratory symptoms. You were negative for COVID-19, RSV, influenza, strep throat. It appears that you have a viral upper respiratory infection that is causing your symptoms. You may continue taking the guaifenesin, Sudafed that your primary care prescribed for you. You may take lozenges, tea with honey for your sore throat. You may also take Tylenol, ibuprofen for aches and pains. Return to the ED if you have worsening symptoms, chest pain, shortness of breath. Prescriptions: No Action fluconazole [Diflucan] 150 mg tablet 150 mg PO Q3D Qty: 2 3RF prenat.vits,jody,[id number] Tablet 1 tab PO DAILY oxycodone 5 mg tablet 5 mg PO Q4H PRN (Reason: pain) Qty: 20 0RF Referrals: ProviderNora [Primary Care Provider, Family Practice] Stand Alone Forms: Patient Portal/API, Work Release Note
== END 2025-02-02 14:22 | disposition home or self-care (01) ==
PROVIDERS: Emergency Medicine; Emergency Provider Student in an Organized Health Care Education/Training Program
DX: J06.9 Acute upper respiratory infection, unspecified (principal); R05.9 Cough, unspecified
CPT/HCPCS: 87070; 87637; 87651; 99281; 99283